=== PATIENT | female | born 1985 | race Caucasian/White ===

== ENCOUNTER → 2018-06-01 10:12 | Outpatient (CLI) | payer OTHER, SELFPAY ==
[2018-06-01 11:15] LABS: Add Manual Diff / Slide Review NO; Basophils Percent Auto 0.7 % (0-2); Eosinophils Percent Auto 1.4 % (2-4); Hemoglobin 14.2 g/dL (12.0-16.0); Lymphocytes Percent Auto 13.1 % (25-40); Mean Corpuscular Hemoglobin 29.6 PG (26-34); Mean Corpuscular Volume 89.8 fL (80-100); Monocytes Percent Auto 5.2 % (3-14); Neutrophils Absolute Auto 11000 /uL (3000-5900); Neutrophils Percent Auto 79.6 % (50-75); Platelet Count 312 X10^3/uL (150-400); Red Blood Cell Count 4.78 X10^6/uL (4.0-5.2); Red Cell Distribution Width 12.8 % (11.6-14.8); White Blood Cell Count 13.9 X10^3/uL (4.5-11.0)
[2018-06-01 11:38] LABS: HEMOLYSIS < 15 (0-50); Iron 98 ug/dL (37-170)
[2018-06-01 11:48] LABS: Percent Iron Saturation 32 % (15-50); Total Iron Binding Capacity 308 ug/dL (265-497); Transferrin 262 mg/dL (206-381)
[2018-06-01 12:09] LABS: Thyroid Stimulating Hormone 1.01 uIU/mL (0.47-4.68)
== END ==
PROVIDERS: Visit Provider Obstetrics & Gynecology
DX: L65.9 Nonscarring hair loss, unspecified (principal)
CPT/HCPCS: 36415; 83540; 83550; 84439; 84443; 85025

== ENCOUNTER → 2022-11-18 14:22 | Outpatient (CLI) | payer OTHER, SELFPAY ==
--- NOTE | 2022-11-18 | DI.RAD.S_ITS ---
PROCEDURE: XR FOOT RT MIN 3V INDICATIONS: R FOOT PAIN TECHNIQUE: 3 views of the foot were acquired. COMPARISON: None. FINDINGS: Bones: No fractures or dislocations. Joint spaces are fairly well preserved. No suspicious bony lesions. Soft tissues: No tibiotalar joint effusion. Achilles tendon appears normal. IMPRESSION: Unremarkable radiographic examination of right foot. Dictated by: Bryce Gamboa M.D. on 11/18/2022 at 16:11 Approved by: Bryce Gamboa M.D. on 11/18/2022 at 16:12
== END ==
PROVIDERS: PCP Physician Assistant Medical; Referring Provider Physician Assistant Medical; Visit Provider Physician Assistant Medical
DX: M79.671 Pain in right foot (principal)
CPT/HCPCS: 73630

== ENCOUNTER → 2023-04-20 07:50 | Outpatient (CLI) | payer OTHER, SELFPAY ==
[2023-04-20 10:07] LABS: Add Manual Diff / Slide Review NO; Basophils Absolute Auto 0 /uL (0-100); Basophils Percent Auto 0.7 % (0-2); Eosinophils Absolute Auto 400 /uL (0-450); Eosinophils Percent Auto 6.7 % (2-4); Hematocrit 39.3 % (36-46); Lymphocytes Absolute Auto 1800 /uL (1100-4500); Lymphocytes Percent Auto 27.3 % (25-40); Mean Corpuscular HGB Conc 33.2 % (30-36); Mean Corpuscular Volume 90.4 fL (80-100); Monocytes Absolute Auto 500 /uL (0-900); Monocytes Percent Auto 7.1 % (3-14); Neutrophils Absolute Auto 3800 /uL (1500-7000); Neutrophils Percent Auto 58.2 % (50-75); Platelet Count 330 X10^3/uL (150-400); Red Blood Cell Count 4.34 X10^6/uL (4.0-5.2); Red Cell Distribution Width 12.8 % (11.6-14.8); White Blood Cell Count 6.5 X10^3/uL (4.5-11.0)
[2023-04-20 11:09] LABS: Alanine Aminotransferase 33 IU/L (<35); Albumin 4.2 g/dL (3.5-5.0); Albumin Globulin Ratio 1.5 (1.0-2.8); Alkaline Phosphatase 39 U/L (38-126); Aspartate Aminotransferase 54 IU/L (14-36); BUN Creatinine Ratio 16.9 (6-22); Bilirubin Total 0.5 mg/dL (0.2-1.3); Blood Urea Nitrogen 15 mg/dL (7-17); Calcium 9.4 mg/dL (8.4-10.2); Carbon Dioxide 25 mmol/L (22-32); Chloride 106 mmol/L (98-107); Estimated Glomerular Filt Rate > 60 mL/min (>60); Globulin 2.8 g/dL (1.7-4.1); Glucose 89 mg/dL (70-100); HEMOLYSIS < 15 (0-50); Potassium 4.3 mmol/L (3.4-5.1); Sodium 138 mmol/L (137-145)
[2023-04-20 11:53] LABS: Estradiol, Total 37.1 pg/mL
[2023-04-20 12:14] LABS: TSH w/ Reflex to FT4 0.86 uIU/mL (0.47-4.68)
[2023-04-25 14:09] LABS: Percent Free Testosterone 1.69 % (0.50-2.80); Testosterone Total 17.5 ng/dL (10.0-55.0)
== END ==
PROVIDERS: PCP Physician Assistant Medical; Referring Provider Physician Assistant Medical; Visit Provider Physician Assistant Medical
DX: N95.9 Unspecified menopausal and perimenopausal disorder (principal); R53.83 Other fatigue
CPT/HCPCS: 36415; 80053; 82670; 84144; 84402; 84403; 84443; 85025